=== PATIENT | male | born 1970 | race Caucasian/White ===

== ENCOUNTER → 2017-09-04 | Outpatient (CLI) | payer BC ==
[~2017-09-04] MED LIST: ACET500T98 PO; DENIES; HYDR-3498 PO
== END | disposition home or self-care (01) ==
LOC: LAB 11:08
PROVIDERS: ATTEND General Practice
DX: Z00.00 Encounter for general adult medical examination without abnormal findings (principal); Z11.3 Encounter for screening for infections with a predominantly sexual mode of transmission; R53.83 Other fatigue; E72.11 Homocystinuria
CPT/HCPCS: 80053; 80061; 81003; 82306; 83090; 83540; 84153; 84154; 84403; 84439; 84443; 84481; 85025; 86140; 86703; 87591

== ENCOUNTER 2018-03-02 05:39 | Emergency (ER) | END 2018-03-02 07:50 | disposition home or self-care (01) ==

== ENCOUNTER 2018-03-06 12:08 | Emergency (ER) | END 2018-03-06 14:05 | disposition home or self-care (01) ==

== ENCOUNTER → 2019-05-06 | Outpatient (CLI) | payer BC ==
[~2019-05-06] MED LIST changes: +CIPR500T4 PO; +DICY10CA40 PO; +IBUP800T48 PO; +METR500T PO
== END | disposition home or self-care (01) ==
LOC: LAB 10:09
PROVIDERS: ATTEND General Practice
DX: Z00.00 Encounter for general adult medical examination without abnormal findings (principal)
CPT/HCPCS: 80053; 80061; 81001; 82306; 83036; 83540; 84153; 84154; 84436; 84443; 84480; 85025; 86140